=== PATIENT | female | born 1970 | race African-American/Black ===

== ENCOUNTER 2021-03-13 19:16 | Emergency (ER) | payer OTHER ==
[~2021-03-13] VITALS: Ht 162.6 cm; Wt 74.8 kg
[2021-03-13] MEDS ORDERED: methylPREDNISolone SOD SUCC 125 MG/2 ML VIAL IV ONE (19:30)
[2021-03-13] MEDS ORDERED: ALBUTEROL SULFATE 2.5 MG/3 ML NEBU NEB ONE ×2 (19:30→20:45)
[2021-03-13] MEDS ORDERED: MAGNESIUM SULFATE 2 GM in IV DEXTROSE 5% 100 ML IV ONE (19:30)
[2021-03-13] MEDS ORDERED: IPRATROPIUM BROMIDE 0.5 MG/2.5 ML NEBU NEB ONE (19:30)
[2021-03-13] MEDS ORDERED: IPRATROPIUM BROMIDE 0.5 MG/2.5 ML NEBU ONE (19:42)
[2021-03-13] MEDS ORDERED: ALBUTEROL SULFATE 2.5 MG/ 0.5 ML NEBU ONE (19:43)
[2021-03-13 19:57] LABS: MEAN CORPUSCULAR HEMOGLOBIN 24.7 uug (24.7-32.8); MEAN CORPUSCULAR VOLUME 76.4 fL (75.5-95.3); PLATELET COUNT (AUTO) 263 K/uL (179-408)
[2021-03-13 20:03] LABS: CREATININE 1.1 mg/dL (0.6-1.3)
[2021-03-13] MEDS ORDERED: methylPREDNISolone SOD SUCC 125 MG/2 ML VIAL ONE (20:03)
[2021-03-13] MEDS ORDERED: MAGNESIUM SULFATE/D5W 200 ML ONE (20:03)
[2021-03-13 20:07] LABS: IRON, SERUM 23 ug/dL (50-175)
[2021-03-13] MEDS ORDERED: PRED20TA PO (20:31)
[2021-03-13] MEDS ORDERED: FLUT1DIS28 INH (20:31)
[2021-03-13] MEDS ORDERED: ALBU2.5V13 NEB (20:31)
[2021-03-13] MEDS ORDERED: FERR325T23 PO (20:31)
[2021-03-13] MEDS ORDERED: ALBU6.7H9 INH (20:31)
[2021-03-13] MEDS ORDERED: ALBUTEROL SULFATE 2.5 MG/3 ML NEBU ONE (20:58)
[2021-03-13] MEDS ORDERED: POTASSIUM BICARBONATE/CIT AC 25 MEQ TABLET.EFF PO ONE (21:00)
[2021-03-13] MEDS ORDERED: POTASSIUM BICARBONATE/CIT AC 25 MEQ TABLET.EFF ONE (21:06)
--- NOTE | 2021-03-13 22:15 | NUR ---
IV removed. Catheter intact and site benign. Pressure and 4x4 gauze applied to site. No bleeding noted.
--- NOTE | 2021-03-13 22:20 | NUR ---
Patient discharged to home in stable condition. Written and verbal after care instructions given. Patient verbalizes understanding of instructions. Stressed follow up or return to ER for worsening s/s.
[2021-03-13 22:32] VITALS: BP 128/72
== END 2021-03-13 22:33 | disposition home or self-care (01) ==
LOC: ER 19:16
DX: J45.902 Unspecified asthma with status asthmaticus (principal); D46.4 Refractory anemia, unspecified; E87.6 Hypokalemia; D50.9 Iron deficiency anemia, unspecified; R94.31 Abnormal electrocardiogram [ECG] [EKG]
CPT/HCPCS: 36415; 71045; 80048; 83550; 85025; 85379; 93005; 94640 ×2; 96365; 96375; 99291; J2930; J3475; A4663; J3590

== ENCOUNTER → 2021-03-25 | Emergency (ER) | payer OTHER ==
[~2021-03-25] VITALS: Ht 162.6 cm; Wt 74.4 kg
[~2021-03-25] MED LIST: ALBU2.5V13 NEB; ALBU6.7H9 INH; FERR325T23 PO; FLUT1DIS28 INH; PRED20TA PO; PRED50TA PO; methylPREDNISolone SOD SUCC 125 MG/2 ML VIAL IV ONE; methylPREDNISolone SOD SUCC 125 MG/2 ML VIAL ONE
--- NOTE | 2021-03-25 14:41 | NUR ---
[email or web address] ,medical screening exam in progress
--- NOTE | 2021-03-25 15:48 | NUR ---
Patient is eating lunch with good appetite. Patient said that she feels much better.
--- NOTE | 2021-03-25 16:58 | NUR ---
IV removed. Catheter intact and site benign. Pressure and 4x4 gauze applied to site. No bleeding noted. Patient discharged to home in stable condition with brisk steady gait. Written and verbal after care instructions given. Patient verbalized understanding and compliance of instructions. Stressed follow up with primary doctor or return to ER for worsening s/s. Patient 100% of the hot meal prepared by the hospital. Bus card from nursing dehydrogenation supervisor was also provided per patient's request.
== END | disposition home or self-care (01) ==
LOC: ER 14:30
DX: J45.901 Unspecified asthma with (acute) exacerbation (principal); Z20.822 Contact with and (suspected) exposure to COVID-19; Z79.899 Other long term (current) drug therapy
CPT/HCPCS: 87426; 96374; 99283; J2930; A4663

== ENCOUNTER 2022-04-21 06:22 | Emergency (ER) | payer OTHER ==
[~2022-04-21] VITALS: Ht 162.6 cm; Wt 77.1 kg
[~2022-04-21 06:22] MED LIST changes: -methylPREDNISolone SOD SUCC 125 MG/2 ML VIAL IV ONE; -methylPREDNISolone SOD SUCC 125 MG/2 ML VIAL ONE
[2022-04-21] MEDS ORDERED: ALBUTEROL SULFATE 2.5 MG/3 ML NEBU ONE (06:28)
[2022-04-21] MEDS ORDERED: IPRATROPIUM BROMIDE 0.5 MG/2.5 ML NEBU ONE (06:29)
[2022-04-21] MEDS ORDERED: IPRATROPIUM BROMIDE 0.5 MG/2.5 ML NEBU NEB ONE (06:30)
[2022-04-21] MEDS ORDERED: ALBUTEROL SULFATE 2.5 MG/3 ML NEBU NEB ONE (06:30)
[2022-04-21] MEDS ORDERED: predniSONE 10 MG TABLET PO ONE (06:30)
[2022-04-21] MEDS ORDERED: MAGNESIUM SULFATE 2 GM in IV DEXTROSE 5% 100 ML IV ONE (06:30)
--- NOTE | 2022-04-21 06:32 | NUR ---
Pt A/O x 4. Dr. Baum at bedside. MSE in progress.
[2022-04-21 06:38] LABS: HEMATOCRIT 37.1 % (31.2-41.9); MEAN CORPUSCULAR HEMOGLOBIN 25.7 uug (24.7-32.8); MEAN CORPUSCULAR VOLUME 80.3 fL (75.5-95.3); PLATELET COUNT (AUTO) 352 K/uL (179-408)
[2022-04-21] MEDS ORDERED: predniSONE 50 MG TABLET ONE (06:40)
[2022-04-21] MEDS ORDERED: predniSONE 10 MG TABLET ONE (06:40)
[2022-04-21] MEDS ORDERED: MAGNESIUM SULFATE/D5W 200 ML ONE (06:40)
[2022-04-21 06:46] LABS: POTASSIUM 3.3 mmol/L (3.5-5.1)
--- NOTE | 2022-04-21 06:50 | NUR ---
X-ray at bedside.
--- NOTE | 2022-04-21 07:09 | NUR ---
Report given to MAT Phipps.
[2022-04-21] MEDS ORDERED: PRED20TA PO (07:10)
--- NOTE | 2022-04-21 07:10 | NUR ---
Law Firm Consultant assumes care: 1st contact with patient, she is AOx4, neb treatment in progress. Patient speaks full sentences comfortably, calm, skin warm and dry, for disposition.
--- NOTE | 2022-04-21 07:32 | NUR ---
Patient ambulated to bathroom with brisk steady gait, NAD.
[2022-04-21] MEDS ORDERED: MAGNESIUM SULFATE/D5W 100 ML ONE (08:52)
--- NOTE | 2022-04-21 09:50 | NUR ---
Patient is resting comfortably on gurney with eyes closed. PATIENT IS PAIN FREE AT THIS TIME. Patient denies shortness of breath.
--- NOTE | 2022-04-21 10:02 | NUR ---
IV removed. Catheter intact and site benign. Pressure and 4x4 gauze applied to site. No bleeding noted. Patient discharged to home in stable condition with steady gait. Written and verbal after care instructions given. Patient verbalized understanding and compliance of instructions. Stressed follow up with primary doctor as scheduled this April or return to ER for worsening s/s.
== END 2022-04-21 10:09 | disposition home or self-care (01) ==
LOC: ER 06:31
DX: J45.901 Unspecified asthma with (acute) exacerbation (principal); Z20.822 Contact with and (suspected) exposure to COVID-19; E87.6 Hypokalemia
CPT/HCPCS: 99285; 96365; 71045; 96366; 87804; 80048; 83880; 85025; 84484; 36415; 93005; 94644; U0003; C9803; J7512 ×2; J3475 ×3; A4663; J3590

== ENCOUNTER 2024-05-02 06:10 | Emergency (ER) | payer OTHER ==
[2024-05-02] VITALS (7 sets, daily range): BP systolic 141; BP diastolic 71; TEMP 98; O2SAT 96–100
[~2024-05-02] VITALS: Ht 162.6 cm; Wt 82.6 kg
[2024-05-02] MEDS: MAGNESIUM SULFATE 2 GM in IV DEXTROSE 5% 100 ML IV ONE (07:00)
[2024-05-02] MEDS: ALBUTEROL SULFATE 2.5 MG/3 ML NEBU NEB ONE ×2 (07:01→12:11)
[2024-05-02] MEDS: IPRATROPIUM BROMIDE 0.5 MG/2.5 ML NEBU NEB ONE (07:01)
[2024-05-02] MEDS ORDERED: IPRATROPIUM BROMIDE 0.5 MG/2.5 ML NEBU ONE (07:05)
[2024-05-02] MEDS ORDERED: ALBUTEROL SULFATE 2.5 MG/3 ML NEBU ONE ×2 (07:05→12:13)
[2024-05-02] MEDS ORDERED: ONDANSETRON 4 MG/2 ML VIAL ONE (07:44)
[2024-05-02] MEDS ORDERED: OXYCODONE/APAP 5-325 MG TABLET ONE (07:44)
[2024-05-02] MEDS ORDERED: MAGNESIUM SULFATE/D5W 200 ML ONE (07:44)
[2024-05-02] MEDS ORDERED: predniSONE 10 MG TABLET ONE (07:45)
[2024-05-02] MEDS: IV NORMAL SALINE 500 ML BAG IV ONE (07:47)
[2024-05-02] MEDS: OXYCODONE/APAP 5-325 MG TABLET PO ONE (07:48)
[2024-05-02] MEDS: predniSONE 10 MG TABLET PO ONE (07:48)
[2024-05-02] MEDS: ONDANSETRON 4 MG/2 ML VIAL IV ONE (07:48)
[2024-05-02 07:52] LABS: BASOPHILS % (AUTO) 0.5 % (0.0-2.0); HEMATOCRIT 32.3 % (31.2-41.9); HEMOGLOBIN 10.3 g/dL (10.9-14.3); LYMPHOCYTES # (AUTO) 0.8 K/uL (0.8-4.8); MEAN CORPUSCULAR HEMOGLOBIN 24.2 uug (24.7-32.8); MEAN CORPUSCULAR HGB CONC 32 g/dL (32.3-35.6); MEAN CORPUSCULAR VOLUME 76.2 fL (75.5-95.3); MONOCYTES # (AUTO) 0.5 K/uL (0.1-1.30); MONOCYTES % (AUTO) 9.8 % (0.0-11.0); NEUTROPHILS # (AUTO) 3.9 K/uL (1.8-8.9); NEUTROPHILS % (AUTO) 74.7 % (38.5-71.5); PLATELET COUNT (AUTO) 249 K/uL (179-408); RED BLOOD CELL COUNT(AUTO) 4.24 MIL/uL (3.63-4.92); RED CELL DISTRIBUTION WIDTH 16.5 % (12.3-17.7); WHITE BLOOD COUNT (AUTO) 5.2 K/uL (3.8-11.8)
[2024-05-02 07:55] LABS: DIFFERENTIAL COMMENT 1
[2024-05-02 10:06] LABS: CALCIUM 8.7 mg/dL (8.5-10.1); CARBON DIOXIDE 22 mmol/L (21-32); CHLORIDE 104 mmol/L (98-107); GLUCOSE 117 mg/dL (74-106); POTASSIUM 3.2 mmol/L (3.5-5.1); SODIUM SERUM 141 mmol/L (136-145); UREA NITROGEN, BLOOD 12 mg/dL (7-18)
[2024-05-02 10:17] LABS: IRON, SERUM 19 ug/dL (50-175)
[2024-05-02 10:19] LABS: NT-PRO BNP 53 pg/mL (0-125)
[2024-05-02] MEDS ORDERED: POTASSIUM BICARBONATE/CIT AC 25 MEQ TABLET.EFF PO ONE (11:30)
[2024-05-02 11:40] LABS: LACTIC ACID 2.2 mmol/L (0.4-2.0)
[2024-05-02 12:48] LABS: BILIRUBIN,DIRECT 0.1 mg/dL (0.0-0.2); BILIRUBIN,TOTAL 0.2 mg/dL (0.2-1.0)
[2024-05-02] MEDS ORDERED: ALBU18HF2 INH (13:19)
[2024-05-02] MEDS ORDERED: PRED20TA PO (13:19)
[2024-05-02] MEDS ORDERED: ACET1TAB23 PO (13:19)
[2024-05-02] MEDS ORDERED: FLUT12AE5 INH (13:19)
== END 2024-05-02 15:02 | disposition home or self-care (01) ==
LOC: ER 06:10
DX: J45.902 Unspecified asthma with status asthmaticus (principal); D50.9 Iron deficiency anemia, unspecified; E87.20 Acidosis, unspecified; E87.6 Hypokalemia; J44.1 Chronic obstructive pulmonary disease with (acute) exacerbation; Z79.51 Long term (current) use of inhaled steroids; Z79.52 Long term (current) use of systemic steroids
CPT/HCPCS: 99291; 96365; 71045; 96366; 96375; 87804 ×2; 80048; 82247; 82248; 83880; 83550; 85025; 85044; 84484; 36415; 94644; 94645; 93005; 83605 ×2; J7512; J3475 ×2; J2405; 70030-TC; A4606; A4663; J3590